=== PATIENT | male | born 1965 | race Caucasian/White ===

== ENCOUNTER 2023-12-16 19:15 | Emergency (ER) | payer BC ==
[~2023-12-16] VITALS: Ht 175.3 cm; Wt 102.1 kg
[2023-12-16 19:25] VITALS: BP_SYST 153; PULSE 72; RESP 18; TEMP 97.6; O2SAT 97
[2023-12-16 20:36] LABS: BASOPHILS # (AUTO) 0.1 K/uL (0.0-0.2); BASOPHILS % (AUTO) 0.7 % (0.0-2.0); EOSINOPHILS # (AUTO) 0.3 K/uL (0.0-0.4); EOSINOPHILS % (AUTO) 3.4 % (0.0-4.0); HEMATOCRIT 43.5 % (36-54); HEMOGLOBIN 14.8 g/dL (14.0-18.0); LYMPHOCYTES # (AUTO) 2.7 K/uL (1.0-5.5); LYMPHOCYTES % (AUTO) 32.4 % (20.5-51.5); MEAN CORPUSCULAR HEMOGLOBIN 29 pg (27-31); MEAN CORPUSCULAR HGB CONC 34 % (32-36); MEAN CORPUSCULAR VOLUME 86 fL (79.0-98.0); MONOCYTES # (AUTO) 0.7 K/uL (0.0-1.0); MONOCYTES % (AUTO) 8.3 % (1.7-9.3); NEUTROPHILS # (AUTO) 4.5 K/uL (1.8-7.7); NEUTROPHILS % (AUTO) 55.2 % (40.0-70.0); PLATELET COUNT (AUTO) 353 K/uL (130-430); RED BLOOD CELL COUNT(AUTO) 5.04 MIL/uL (4.2-6.2); RED CELL DISTRIBUTION WIDTH 13.7 % (9.0-15.0); WHITE BLOOD COUNT (AUTO) 8.2 K/uL (4.8-10.8)
[2023-12-16 20:48] LABS: CALCIUM 8.9 mg/dL (8.4-11.0); CREATININE 0.84 mg/dL (0.55-1.30); POTASSIUM 3.6 mmol/L (3.5-5.1)
[2023-12-16] MEDS: ONDANSETRON HCL 4 MG/2 ML VIAL IVP ONE (21:47)
[2023-12-17] MEDS: PIPERACILLIN/TAZO 3.375 GM in NS 50 ML IV ONE (00:20)
[2023-12-17] MEDS ORDERED: PIPERACILLIN/TAZOBACTAM 3.375 GM/VIAL (ZOSYN) IV ONE (00:20)
[2023-12-17 01:20] VITALS: BP_SYST 114; PULSE 68; RESP 16; TEMP 98.4; O2SAT 96
== END 2023-12-17 01:20 | disposition home or self-care (01) ==
LOC: SED 19:15
DX: L03.221 Cellulitis of neck (principal); Z90.89 Acquired absence of other organs
CPT/HCPCS: 99285; 70491; 96375; 80048; 85025; 87040; 36415; 83605; 96365; J2405; Q9967; J2543